=== PATIENT | male | born 1940 | race Caucasian/White ===

== ENCOUNTER 2016-08-04 14:10 | Emergency (ER) | payer MEDICARE, OTHER ==
[~2016-08-04 14:10] MED LIST: ALBUTEROL SULF8.5 GM IH; ALEVE220 M1 PO; ALEVE220 M4 PO; ALEVE220 MG; ASPIR 8181 M1 PO; ASPIR 8181 MG PO; FLOMAX0.4 M1 PO; FLOMAX0.4 MG PO; IMDUR60 MG PO; LIPITOR20 M1 PO; LIPITOR20 MG PO; LIPITOR40 MG PO; METOPROLOL TART25 MG PO; MIDODRINE HCL5 M1 PO; MIRALAX17 G2 PO; NICODERM CQ1 EAC1 TD; NITROGLYCERIN0.4 M1 SL; NITROGLYCERIN0.4 M2 SL; NITROGLYCERIN0.4 MG SL; NORVASC5 M1 PO; PLAVIX75 MG PO; PROAIR HFA8.5 GM IH; RANEXA500 M1 PO; RANEXA500 MG PO; SPIRIVA18 MC1 IH; SPIRIVA18 MCG IH; SYMBICORT 160-1 PUFF; TYLENOL325 M2 PO; TYLENOL500 MG; VASOTEC2.5 MG PO; XARELTO15 M1 PO; ZESTRIL2.5 M3 PO; ZESTRIL5 MG PO
[2016-08-04] MEDS ORDERED: NITROGLYCERIN0.4 M2 SL (14:48)
[2016-08-04] MEDS ORDERED: ALEVE220 M4 PO (14:49)
[2016-08-04] MEDS ORDERED: ASPIRIN EC81 MG PO (14:50)
[2016-08-04] MEDS ORDERED: TYLENOL325 M2 PO (14:51)
[2016-08-04] MEDS ORDERED: SPIRIVA18 MC1 INH (14:52)
[2016-08-04] MEDS ORDERED: AZO STANDARD97.5 M1 PO (14:55)
[2016-08-04 14:57] LABS: BASO % 0.4 % (0-2); EOS % 0.9 % (0-7); EOSINOPHIL ABSOLUTE COUNT 0.1 tho/cmm (0.0-0.7); HCT-HEMATOCRIT 40.2 % (36.0-53.5); HGB-HEMOGLOBIN 13.8 gm/dl (13.5-17.0); IMMATURE GRANULOCYTES ABSOLUTE 0.01 tho/cmm (0-0.03); IMMATURE GRANULOCYTES PERCENT 0.2 % (0-0.3); LYMPH % 17.1 % (20-45); MCH (MEAN CORPUSCULAR HGB) 29.3 pg (28.0-32.0); MCHC MEAN CORPUSCULAR HGB CONC 34.3 % (32.0-36.0); MCV (MEAN CELL VOLUME) 85.4 fl (82.0-96.0); MEAN PLATELET VOLUME 9.9 cmc (9.4-12.4); MONO % 8.2 % (0-12); MONOCYTE ABSOLUTE COUNT 0.5 tho/cmm (0.0-1.2); NEUTROPHIL ABSOLUTE COUNT 4.1 tho/cmm (1.6-8.0); NEUTROPHIL-AUTOMATED 4.1 tho/cmm (1.6-8.0); NEUTROPHILS % 73.2 % (40-80); PLATELET COUNT 207 tho/cmm (150-450); RED BLOOD COUNT 4.71 mil/cmm (4.40-5.70); RED CELL DISTRIBUTION WIDTH 16.5 % (12.4-16.4); WHITE BLOOD COUNT 5.6 tho/cmm (4.0-10.0)
[2016-08-04] MEDS ORDERED: NICOTINE GUM2 MG CH (14:58)
[2016-08-04] MEDS ORDERED: NICOTINE PATCH1 EAC2 TD (14:59)
[2016-08-04] MEDS ORDERED: METOPROLOL TART25 M1 PO (15:01)
[2016-08-04] MEDS ORDERED: NORCO 5-325 TA1 EACH PO (15:03)
[2016-08-04] MEDS ORDERED: NORCO 10-325 T1 EACH PO (15:04)
[2016-08-04] MEDS ORDERED: SENNA PLUS TAB1 EAC1 PO (15:07)
[2016-08-04] MEDS ORDERED: SYMBICORT 160-1 PUFF INH (15:10)
[2016-08-04] MEDS ORDERED: ZITHROMAX250 M1 PO (15:12)
[2016-08-04 15:13] LABS: ANION GAP 14 mmol/L (0-20); BLOOD UREA NITROGEN 7 mg/dl (6-24); CALCIUM 8.9 mg/dl (8.5-10.5); CARBON DIOXIDE-VENOUS 27 mmol/L (22-32); CHLORIDE 102 mmol/l (96-110); CREATININE 0.98 mg/dl (0.60-1.30); GLUCOSE 93 mg/dL (70-110); POTASSIUM 3.9 mmol/L (3.7-5.1); SODIUM 139 mmol/L (135-145); eGFR VALUE FOR BLACK 87 mL/Min
[2016-08-04] MEDS ORDERED: LIPITOR40 M1 PO (15:16)
[2016-08-04] MEDS ORDERED: UROXATRAL10 M1 PO (15:16)
[2016-08-04] MEDS ORDERED: VENTOLIN HFA18 G2 INH (15:20)
== END 2016-08-04 16:36 ==
LOC: EDMED 14:10
PROVIDERS: Emergency Medicine
DX: R07.89 Other chest pain (principal); J44.9 Chronic obstructive pulmonary disease, unspecified; E78.5 Hyperlipidemia, unspecified; I48.91 Unspecified atrial fibrillation; I25.2 Old myocardial infarction; F17.210 Nicotine dependence, cigarettes, uncomplicated; I25.10 Atherosclerotic heart disease of native coronary artery without angina pectoris; Z88.0 Allergy status to penicillin; Z79.899 Other long term (current) drug therapy